=== PATIENT | male | born 1990 | race Caucasian/White ===

== ENCOUNTER 2022-04-23 09:48 | Outpatient (CLI) | payer OTHER, SELFPAY ==
[2022-04-23 20:41] LABS: Alanine Aminotransferase 81 U/L (6-50); Albumin Level 4.8 g/dL (3.5-5.1); Alkaline Phosphatase 43 U/L (38-126); Anion Gap 8 mmol/L (8-16); Aspartate Amino Transferase 41 U/L (17-59); Bilirubin,Total 0.5 mg/dL (0.2-1.3); Blood Urea Nitrogen 16 mg/dL (9-20); Calcium 9.9 mg/dL (8.4-10.2); Carbon Dioxide 30 mmol/L (22-30); Chloride 99 mmol/L (98-107); Cholesterol 289 mg/dL (0-200); Estimated Glomerular Filt Rate > 60; Glucose 80 mg/dL (65-110); HDL Direct 46 mg/dL; Potassium 5.1 mmol/L (3.4-5.0); Sodium 137 mmol/L (137-145); Triglycerides 201 mg/dL (<150)
[2022-04-23 20:52] LABS: LDL Cholesterol Direct 196 mg/dL
[2022-04-23 21:12] LABS: Basophils Absolute Auto 0.1 K/mm3 (0.0-0.1); Basophils Percent Auto 0.9 % (0.2-1.2); Eosinophils Absolute Auto 0.1 K/mm3 (0-0.3); Eosinophils Percent Auto 2.1 % (0-4.4); Hematocrit 48.6 % (42.0-52.0); Hemoglobin 15.9 g/dL (14.0-18.0); Immature Granulocyte Absolute 0.01 K/mm3 (0.00-0.031); Immature Granulocyte Percent A 0.2 % (0-0.5); Lymphocytes Absolute Auto 2.67 K/mm3 (0.9-3.2); Lymphocytes Percent Auto 42.1 % (18.3-44.2); Mean Corpuscular HGB Conc 32.7 g/dl (32-36); Mean Corpuscular Hemoglobin 29.8 pg (26-34); Mean Platelet Volume 10.6 fl (7.4-10.4); Monocytes Absolute Auto 0.5 K/mm3 (0.1-0.6); Monocytes Percent Auto 8.4 % (2.6-8.5); Neutrophils Absolute Auto 2.9 K/mm3 (1.3-6.7); Neutrophils Percent Auto 46.3 % (45.5-73.1); Platelet Count Result 269 k/mm3 (150-375); Red Blood Count 5.34 M/mm3 (4.6-6.20); Red Cell Distribution Width 13.8 % (11.5-14.5); White Blood Count 6.3 K/mm3 (4.5-10.0)
[2022-04-23 23:13] LABS: Free T4 Free Thyroxine 1.11 ng/mL (0.78-2.19); Vitamin D 25 Hydroxy 36.2 ng/mL
== END 2022-04-23 09:49 | disposition home or self-care (01) ==
LOC: ANHGOSHLAB 09:49
PROVIDERS: PCP Family Medicine; Visit Provider Family Medicine
DX: E55.9 Vitamin D deficiency, unspecified (principal); E78.5 Hyperlipidemia, unspecified; R53.83 Other fatigue
CPT/HCPCS: 36415; 80053; 80061; 82306; 84439; 84443; 85025

== ENCOUNTER 2022-09-26 08:35 | Outpatient (CLI) | payer OTHER, SELFPAY ==
[2022-09-26 20:10] LABS: Alanine Aminotransferase 62 U/L (6-50); Albumin Level 4.5 g/dL (3.5-5.1); Alkaline Phosphatase 49 U/L (38-126); Anion Gap 7 mmol/L (8-16); Aspartate Amino Transferase 54 U/L (17-59); Bilirubin,Total 0.6 mg/dL (0.2-1.3); Blood Urea Nitrogen 14 mg/dL (9-20); Calcium 9.3 mg/dL (8.4-10.2); Carbon Dioxide 30 mmol/L (22-30); Chloride 102 mmol/L (98-107); Cholesterol 169 mg/dL (0-200); Estimated Glomerular Filt Rate > 60; Glucose 70 mg/dL (65-110); HDL Direct 40 mg/dL; Potassium 4.5 mmol/L (3.4-5.0); Sodium 139 mmol/L (137-145); Triglycerides 132 mg/dL (<150)
[2022-09-26 20:20] LABS: LDL Cholesterol Direct 92 mg/dL
== END 2022-09-26 08:36 | disposition home or self-care (01) ==
LOC: ANHGOSHLAB 08:36
PROVIDERS: PCP Family Medicine; Visit Provider Family Medicine
DX: R74.8 Abnormal levels of other serum enzymes (principal); E78.5 Hyperlipidemia, unspecified
CPT/HCPCS: 36415; 80053; 80061

== ENCOUNTER 2023-04-23 09:25 | Outpatient (CLI) | payer OTHER, SELFPAY ==
[2023-04-23 13:30] LABS: Alanine Aminotransferase 43 U/L (6-50); Albumin Level 4.6 g/dL (3.5-5.1); Alkaline Phosphatase 43 U/L (38-126); Aspartate Amino Transferase 38 U/L (17-59); Bilirubin,Total 0.6 mg/dL (0.2-1.3)
== END 2023-04-23 09:26 | disposition home or self-care (01) ==
PROVIDERS: PCP Family Medicine; Visit Provider Nurse Practitioner
DX: F34.1 Dysthymic disorder (principal); F41.1 Generalized anxiety disorder; R74.8 Abnormal levels of other serum enzymes
CPT/HCPCS: 36415; 80076

== ENCOUNTER 2023-10-13 08:31 | Outpatient (RCR) | payer OTHER, SELFPAY ==
--- NOTE | 2023-10-13 09:16 | OPREHPOC ---
Outpatient Therapy Plan of Care This is a Multidisciplinary Plan of Care that may contain components documented by all disciplines (PT, OT, and ST.) PT Problem 1 PT Problem #1 Knowledge Deficit PT Goal 1 Goal 1. independent and compliant with HEP Target Visit 4 PT Problem 2 PT Problem #2 Impaired Range of Motion PT Goal 1 Goal 1. R ankle PF active rom to 50 degrees 2. R little toe MP flex to 10 degrees or better 3. R great toe MP ext to 70 degrees 4. R great toe MP flex to 30 degrees Target Visit 8 PT Problem 3 PT Problem #3 Impaired Strength PT Goal 1 Goal 1. 5/5 R ankle strength 2. 20 single leg heel raises on eat foot Target Visit 8 PT Problem 4 PT Problem #4 Impaired Functional Mobil PT Goal 1 Goal 1. patient to wean out of boot 2. patient to perform 100% WB without need of bilateral crutches Target Visit 4 PT Goal 2 Goal 1. patient to ambulate with normal gait mechanics on level and unlevel surfaces 2. patient to ambulate up and down steps with reciprocal pattern and no rialing needs 3. LEFS to display 20% or less functional deficits Target Visit 8
--- NOTE | 2023-10-13 09:16 | PTOPEVAL1 ---
Assessment and note entered by JT File, PT Evaluation Information Assessment Status Evaluation Diagnosis 5th metatarsal fracture Onset 08/27/23 Subjective Information patient reports his injury began as a stress fracture over time. he reports it eventually got worse and require surgery. he reports he had a pin and bone marrowed placed at the site of the fracture. he reports he was told he is allowed to place some weight on the R foot in the boot when walking. 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 he reports prior to his injury, he was managing trails at home and walking on uneven ground. he reports he has been dealing with pain in the foot since april of last year. Reported Pain Level Pain Score 0: Self Report Assessment PT Clinical Summary mr. washington is a 33 yo man who presents to skilled PT services for evaluation and treatmet of R 5th met/bella fracture. he presents this date with deficits in great toe/little toe rom of the R LE, deficits in R ankle rom, deficits in R ankle strength, and still in a boot/decreased weight bearing status. he would benefit from continued skilled PT to wean from boot and return to prior level weight bearing/walking to return to his functional activities and quality of life. Plan of Care Interventions Electrical Stimulation,Gait Training,Hot Pack/Cold Pack,Manual Therapy,Neuro Re-education,Patient/ Caregiver Educati,Therapeutic Activities, Therapeutic Exercise,Ultrasound PT Services Indicated Yes Treatment Frequency and 2x weekly for 8 visits Duration These treatments will address the objective and functional deficits as defined above. The patient will be advanced safely and appropriately in order for the patient to progress towards his/her prior level of function. Additional exercises will be introduced and as well as a comprehensive home exercise program upon discharge, if needed, ?to ensure carryover of functional gains achieved in the clinic. This treatment plan has been reviewed and agreement upon by the patient.
--- NOTE | 2023-11-05 08:27 | OPREHPOC ---
Outpatient Therapy Plan of Care This is a Multidisciplinary Plan of Care that may contain components documented by all disciplines (PT, OT, and ST.) PT Problem 1 PT Problem #1 Knowledge Deficit PT Goal 1 Goal 1. independent and compliant with HEP Target Visit 4 Progress Met PT Problem 2 PT Problem #2 Impaired Range of Motion PT Goal 1 Goal 1. R ankle PF active rom to 50 degrees -progress toward 2. R little toe MP flex to 10 degrees or better - met 3. R great toe MP ext to 70 degrees -met 4. R great toe MP flex to 30 degrees -met Target Visit 8 Progress Partially Met PT Problem 3 PT Problem #3 Impaired Strength PT Goal 1 Goal 1. 5/5 R ankle strength -met 2. 20 single leg heel raises on each foot -met Target Visit 8 Progress Met PT Problem 4 PT Problem #4 Impaired Functional Mobil PT Goal 1 Goal 1. patient to wean out of boot -met 2. patient to perform 100% WB without need of bilateral crutches -met Target Visit 4 Progress Met PT Goal 2 Goal 1. patient to ambulate with normal gait mechanics on level and unlevel surfaces -met 2. patient to ambulate up and down steps with reciprocal pattern and no railing needs -met 3. LEFS to display 20% or less functional deficits -met Target Visit 8 Progress Met
--- NOTE | 2023-11-05 08:27 | PTOPDC ---
Assessment and note entered by Rocío Piña, PT Evaluation Information Assessment Status Discharge Diagnosis R 5th metatarsal fracture Onset 08/27/23 Subjective Information Steven Montero reports his right foot is doing well. He has been able to return to his previous activity level and daily activities without pain. The only time he notes pain is with longer distance walking and pain is only rated 1/10 at that time. Reported Pain Level Pain Score 0: Self Report Assessment PT Clinical Summary Steven Montero has completed 8 skilled PT visits following a right 5th metatarsal fracture. He is reporting no difficulty or pain in the right foot with all activities with the exception of walking longer distances. He objectively demonstrates improved and full right ankle AROM, improved right foot and ankle strength, normal gait mechanics, and good balance. He does still have mild deficits in right single leg heel raises however, he is independent in a home exercise program to continue after discharge. He has met 95% of his PT goals and will be discharged. Plan of Care PT Services Indicated No
== END 2023-11-05 08:44 | disposition home or self-care (01) ==
LOC: CHSPT 08:31
PROVIDERS: Visit Provider Nurse Practitioner Family
DX: Z47.89 Encounter for other orthopedic aftercare (principal); S99.191D Other physeal fracture of right metatarsal, subsequent encounter for fracture with routine healing
CPT/HCPCS: 97110; 97161

== ENCOUNTER 2023-11-05 09:20 | Outpatient (CLI) | payer OTHER, SELFPAY ==
[2023-11-05 19:01] LABS: Basophils Absolute Auto 0.1 K/mm3 (0.0-0.1); Basophils Percent Auto 1.2 % (0.2-1.2); Eosinophils Absolute Auto 0.2 K/mm3 (0-0.3); Eosinophils Percent Auto 3.6 % (0-4.4); Hematocrit 46.1 % (42.0-52.0); Hemoglobin 15.1 g/dL (14.0-18.0); Immature Granulocyte Absolute 0.01 K/mm3 (0.00-0.031); Immature Granulocyte Percent A 0.2 % (0-0.5); Lymphocytes Absolute Auto 2.36 K/mm3 (0.9-3.2); Lymphocytes Percent Auto 38.8 % (18.3-44.2); Mean Corpuscular HGB Conc 32.8 g/dl (32-36); Mean Corpuscular Hemoglobin 30.2 pg (26-34); Mean Corpuscular Volume 92.2 fl (80-100); Mean Platelet Volume 10.7 fl (7.4-10.4); Monocytes Absolute Auto 0.5 K/mm3 (0.1-0.6); Monocytes Percent Auto 7.7 % (2.6-8.5); Neutrophils Percent Auto 48.5 % (45.5-73.1); Platelet Count Result 281 k/mm3 (150-375); Red Cell Distribution Width 13.7 % (11.5-14.5); White Blood Count 6.1 K/mm3 (4.5-10.0)
[2023-11-05 19:20] LABS: Alanine Aminotransferase 34 U/L (6-50); Albumin Level 4.4 g/dL (3.5-5.1); Alkaline Phosphatase 52 U/L (38-126); Anion Gap 7 mmol/L (8-16); Aspartate Amino Transferase 46 U/L (17-59); Bilirubin,Total 0.6 mg/dL (0.2-1.3); Blood Urea Nitrogen 14 mg/dL (9-20); Calcium 10.1 mg/dL (8.4-10.2); Carbon Dioxide 30 mmol/L (22-30); Chloride 103 mmol/L (98-107); Cholesterol 145 mg/dL (0-200); Estimated Glomerular Filt Rate > 60; Glucose 80 mg/dL (65-110); HDL Direct 48 mg/dL; Potassium 4.9 mmol/L (3.4-5.0); Sodium 140 mmol/L (137-145); Triglycerides 115 mg/dL (<150)
[2023-11-05 19:34] LABS: LDL Cholesterol Direct 80 mg/dL
== END 2023-11-05 09:21 | disposition home or self-care (01) ==
LOC: ANHGOSHLAB 09:22
PROVIDERS: PCP Family Medicine; Visit Provider Nurse Practitioner
DX: E78.5 Hyperlipidemia, unspecified (principal); Z13.29 Encounter for screening for other suspected endocrine disorder
CPT/HCPCS: 36415; 80053; 80061; 85025

== ENCOUNTER 2024-11-17 07:17 | Outpatient (CLI) | payer OTHER, SELFPAY ==
[2024-11-17 07:31] LABS: Basophils Absolute Auto 0.04 K/mm3 (0.00-0.10); Basophils Percent Auto 0.7 % (0.0-1.0); Eosinophils Absolute Auto 0.09 K/mm3 (0.02-0.50); Eosinophils Percent Auto 1.6 % (1.0-6.0); Hematocrit 44.2 % (40.0-54.0); Hemoglobin 14.9 g/dL (14.0-18.0); Lymphocytes Absolute Auto 1.79 K/mm3 (1.10-4.50); Lymphocytes Percent Auto 32.4 % (18.0-42.0); Mean Corpuscular HGB Conc 33.7 g/dL (32-36); Mean Corpuscular Volume 88.9 fL (78.0-102.0); Mean Platelet Volume 9.2 fl (8.7-11.0); Monocytes Absolute Auto 0.41 K/mm3 (0.10-0.90); Monocytes Percent Auto 7.4 % (2.0-11.0); Neutrophils Absolute Auto 3.19 K/mm3 (1.70-7.20); Neutrophils Percent Auto 57.9 % (50.0-70.0); Platelet Count Result 305 K/mm3 (150-420); Red Blood Count 4.97 M/mm3 (4.70-6.10); Red Cell Distribution Width 12.7 % (11.6-14.4); White Blood Count 5.5 K/mm3 (4.8-10.8)
[2024-11-17 07:48] LABS: Hemoglobin A1C 5.2 % (<5.7)
[2024-11-17 08:06] LABS: Alanine Aminotransferase 41 U/L (16-63); Albumin Level 4.4 g/dL (3.4-5.0); Alkaline Phosphatase 65 U/L (46-116); Anion Gap 12 mmol/L (4-12); Aspartate Amino Transferase 24 U/L (15-37); Bilirubin,Total 0.5 mg/dL (0.00-1.00); Blood Urea Nitrogen 16 mg/dL (7-18); Calcium 9.2 mg/dL (8.5-10.1); Carbon Dioxide 28 mmol/L (21-32); Chloride 103 mmol/L (98-108); Cholesterol 188 mg/dL (0-200); Estimated Glomerular Filt Rate > 60; Free T4 Free Thyroxine 0.98 ng/dL (0.76-1.46); Glucose 89 mg/dL (70-99); HDL Direct 68 mg/dL (40-60); LDL Cholesterol Calculated 107 mg/dL (<130); Osmolality Calculated 296 mOsm/kg (285-295); Potassium 4.8 mmol/L (3.5-5.1); Sodium 143 mmol/L (136-145); Thyroid Stimulating Hormone 1.13 uIU/mL (0.36-3.74); Total Protein 7.2 g/dL (6.4-8.2); Triglycerides 64 mg/dL (0-150)
[2024-11-18 10:38] LABS: Vitamin D 25 Hydroxy 16 ng/mL (30-100)
== END 2024-11-17 07:18 | disposition home or self-care (01) ==
LOC: CHSLAB 07:18
PROVIDERS: PCP Family Medicine; Visit Provider Family Medicine
DX: E78.5 Hyperlipidemia, unspecified (principal); E55.9 Vitamin D deficiency, unspecified; R53.83 Other fatigue; R73.9 Hyperglycemia, unspecified
CPT/HCPCS: 36415; 80053; 80061; 82306; 83036; 84439; 84443; 85025